=== PATIENT | male | born 1970 | race Two or more races ===

== ENCOUNTER 2021-06-16 20:35 | Emergency (ER) | payer SELFPAY ==
[2021-06-16] MEDS ORDERED: Metoprolol Tartrate 50 MG Tab PO ONE (21:01)
[2021-06-16] MEDS ORDERED: Aspirin 81 MG Tab.Chew PO ONE (21:03)
[2021-06-16 21:23] LABS: PTT,PARTIAL THROMBOPLSTIN TIME 24.3 SEC (23.2-32.3)
[2021-06-16 21:24] LABS: CHLORIDE,CL 99 mEq/L (98-106); SODIUM,NA 137 mEq/L (136-145)
--- NOTE | 2021-06-16 21:25 | EDM.PDOC ---
ED HPI GENERAL MEDICAL PROBLEM - General Chief Complaint: Chest Pain Stated Complaint: cp Time Seen by Provider: 06/16/21 21:25 Source of Information: Reports: Patient History Limitations: Reports: No Limitations - History of Present Illness INITIAL COMMENTS - FREE TEXT/NARRATIVE: Toy is a 50 year old male with no known PMH who presents to the ED with c/o chest pain. He reports that intermittently over the last 2 weeks, when he exerts himself, he will have substernal chest pain that radiates to his jaw/left arm. He reports he has been nervous about coming in to the doctor. Reports that this evening the pain started around 1930 and did not resolve with rest and drinking water. He reports that normally the pain would resolve if he drank water and rested. He denies any dizziness, lightheadedness, headache, palpitations, shortness of breath, N/V/D. No other associated symptoms. He is not a smoker. Reports occasional alcohol use. No drug use. Has not been to the doctor in a number of years. Onset: Today Onset Date: 06/16/21 Onset Time: 19:30 Duration: Constant Location: Reports: Chest, Upper Extremity, Left, Radiates to Quality: Reports: Burning, Throbbing Severity: Moderate Improves with: Reports: None Worsens with: Reports: None Associated Symptoms: Reports: Chest Pain. Denies: Confusion, Cough, cough w sputum, Diaphoresis, Fever/Chills, Headaches, Loss of Appetite, Malaise, Nausea/Vomiting, Rash, Seizure, Shortness of Breath, Syncope, Weakness Chest Pain Score (Numeric/FACES): 3 - Related Data Allergies Allergy/AdvReac Type Severity Reaction Status Date / Time No Known Allergies Allergy Verified 06/16/21 21:01 Home Meds: Home Meds . [No Known Home Meds] 06/16/21 [History] Past Medical History - Past Health History Medical/Surgical History: Denies Medical/Surgical History Social & Family History - Family History Family Medical History: No Pertinent Family History - Tobacco Use Tobacco Use Status *Q: Never Tobacco User - Caffeine Use Caffeine Use: Reports: Coffee - Recreational Drug Use Recreational Drug Use: No ED ROS GENERAL - Review of Systems Review Of Systems: See Below Constitutional: Reports: No Symptoms. Denies: Fever, Chills, Malaise, Weakness, Fatigue, Diaphoresis, Decreased Appetite HEENT: Reports: No Symptoms Respiratory: Reports: Wheezing. Denies: Shortness of Breath, Pleuritic Chest Pain, Cough, Sputum, Hemoptysis Cardiovascular: Reports: Chest Pain, Blood Pressure Problem. Denies: Dyspnea on Exertion, Edema, Lightheadedness, Orthopnea, Palpitations, Syncope Endocrine: Reports: No Symptoms GI/Abdominal: Reports: No Symptoms. Denies: Abdominal Pain, Diarrhea, Nausea, Vomiting : Reports: No Symptoms Musculoskeletal: Reports: No Symptoms Skin: Reports: No Symptoms Neurological: Denies: Confusion, Dizziness, Headache, Numbness, Syncope, Tingling, Weakness Psychiatric: Reports: No Symptoms Hematologic/Lymphatic: Reports: No Symptoms Immunologic: Reports: No Symptoms ED EXAM, GENERAL - Physical Exam Exam: See Below Exam Limited By: Language Barrier General Appearance: Alert, WD/WN, No Apparent Distress Head: Atraumatic, Normocephalic Neck: Normal Inspection, Supple, Non-Tender, Full Range of Motion Respiratory/Chest: No Respiratory Distress, Lungs Clear, Normal Breath Sounds, No Accessory Muscle Use, Chest Non-Tender Cardiovascular: Normal Peripheral Pulses, Regular Rate, Rhythm, No Edema, No Gallop, No JVD, No Murmur, No Rub GI/Abdominal: Normal Bowel Sounds, Soft, No Organomegaly, No Distention, No Abnormal Bruit, No Mass, Tender (mild tenderness epgastric area) Back Exam: Normal Inspection, Full Range of Motion, NT Extremities: Normal Inspection, Normal Range of Motion, Non-Tender, Normal Capillary Refill, No Pedal Edema Neurological: Alert, Oriented, CN II-XII Intact, Normal Cognition, Normal Gait, Normal Reflexes, No Motor/Sensory Deficits Psychiatric: Normal Affect, Normal Mood Skin Exam: Warm, Dry, Intact, Normal Color, No Rash Course - Vital Signs Last Recorded V/S: Last Vital Signs Temp 98.5 F 06/16/21 23:20 Pulse 68 06/16/21 23:20 Resp 15 06/16/21 23:20 BP 169/84 H 06/16/21 23:34 Pulse Ox 95 06/16/21 23:20 - Orders/Labs/Meds Orders: Active Orders 24 hr Category Date Time Status Chest 2V [CR] Stat Exams 06/16/21 21:04 Taken Labs: Laboratory Tests 06/16/21 06/16/2106/16/21 Range/Units 21:01 21:01 21:01 WBC 9.7 (4.0-11.0) 10^3/uL RBC 4.12 L (4.50-6.00) x10^6/uL Hgb 11.7 L (14.0-18.0) g/dL Hct 35.3 L (42.0-52.0) % MCV 85.7 (83.0-97.0) fL MCH 28.4 (27.0-32.0) pg MCHC 33.1 (32.0-36.0) g/dL RDW Coeff of Debbie 13.5 (11.0-15.0) % Plt Count 324 (150-400) 10^3/uL Immature Gran % (Auto) 0.1 (0.0-4.9) % Neut % (Auto) 52.1 (41-71) % Lymph % (Auto) 23.2 L (24-44) % Mcdowell % (Auto) 8.1 (0-10) % Eos % (Auto) 15.8 H (0-6) % Baso % (Auto) 0.7 (0-1) % Neut # (Auto) 5.04 (1.80-8.00) x10^3/uL Lymph # (Auto) 2.25 (0.60-5.00) 10^3/uL Mcdowell # (Auto) 0.78 (0.00-1.50) 10^3/uL Eos # (Auto) 1.53 H (0.00-1.50) 10^3/uL Baso # (Auto) 0.07 (0.00-0.50) 10^3/uL Immature Gran # (Auto) 0.01 (0.00-0.49) 10^3/uL PT 9.8 (9.7-12.3) SEC INR 0.89 L (0.92-1.18) APTT 24.3 (23.2-32.3) SEC Sodium 137 (136-145) mEq/L Potassium 3.9 (3.5-5.0) mEq/L Chloride 99 (98-106) mEq/L Carbon Dioxide 28 (21-32) mmol/L BUN 18 (7-18) mg/dL Creatinine 1.2 (0.7-1.3) mg/dL Est Cr Clr Drug Dosing 70.46 mL/min Estimated GFR (MDRD) > 60 (>=60) mL/min Glucose 104 H (75-99) mg/dL Calcium 8.4 (8.4-10.1) mg/dL Magnesium 2.0 (1.8-2.4) mg/dL Total Bilirubin 0.2 (0.0-1.0) mg/dL AST 32 (15-37) U/L ALT 51 (12-78) U/L Alkaline Phosphatase 145 H (46-116) U/L Lactate Dehydrogenase 166 (100-190) U/L Creatine Kinase 124 (35-232) U/L Troponin I 0.322 H (0.00-0.06) ng/mL Total Protein 7.0 (6.4-8.2) g/dL Albumin 3.5 (3.4-5.0) g/dL Lipase 54 L (73-393) U/L Meds: Medications Discontinued Medications Generic Name Dose Route Start Last Admin Trade Name Natanael PRN Reason Stop Dose Admin Aspirin 324 mg 06/16/21 21:03 06/16/21 21:05 Aspirin 81 Mg Tab.Chew PO 06/16/21 21:04 324 mg ONETIME ONE Administration Heparin Sodium (Porcine) 4,000 units 06/16/21 22:01 06/16/21 22:10 Heparin Sodium 5,000 Units/Ml Vial IVPUSH 06/16/21 22:02 4,000 units ONETIME ONE Administration Hydralazine HCl 20 mg 06/16/21 22:58 06/16/21 23:04 Hydralazine 20 Mg/Ml Sdv IVPUSH 06/16/21 22:59 20 mg ONETIME ONE Administration Nitroglycerin/Dextrose 25 mg in 250 mls @ 6 mls/hr 06/16/21 22:00 06/16/21 22:03 Nitroglycerin 25 Mg/D5w 250 Ml IV 5 mcg/min TITRATE YARIEL 3 mls/hr Administration Protocol 10 MCG/MIN Heparin Sodium/Sodium Chloride Confirm 06/16/21 21:32 06/16/21 22:14 Heparin 25,000 Units In 1/2 Ns 500 Ml Administered 06/16/21 21:33 Not Given Dose 500 mls @ as directed .ROUTE .STK-MED ONE Heparin Sodium/Sodium Chloride 500 mls @ 20 mls/hr 06/16/21 22:00 06/16/21 22:14 Heparin 25,000 Units In 1/2 Ns 500 Ml IV 1,000 units/hr TITRATE YARIEL 20 mls/hr Administration Protocol 1,000 UNITS/HR Metoprolol Tartrate 50 mg 06/16/21 21:01 06/16/21 21:09 Metoprolol Tartrate 50 Mg Tab PO 06/16/21 21:02 50 mg ONETIME ONE Administration Nitroglycerin 0.4 gm 06/16/21 21:37 06/16/21 21:50 Nitroglycerin Lingual [place]erry 4.9 Gm Canister TRLING 0.4 mg ASDIRECTED PRN Administration Chest Pain - Re-Assessments/Exams Free Text/Narrative Re-Assessment/Exam: 06/16/21 21:[address] Calix pediatrician at [facility] who reviewed EKG and recommends transfer to higher level of care given troponin and ST inversions in lateral leads. Recommend aspirin, heparin gtt and nitro gtt. Consulted with Dr. Oropeza, hospitalist at [facility] who accepted patient for transfer. 06/16/21 22:41 Contacted [place], [facility], [place] and [facility]. All report they are unable to provide transportation to [place]. Contacted [facility] who accepted patient for transfer via helicopter. Discussed risks vs. benefits of transfer with patient and friend. Risks of transfer include but not limited to worsening of condition, , and helicopter crash. Benefits of transfer include higher level of care with PCI if indicated. Risks of nontransfer include worsening of condition and . Benefits of nontransfer include convenience. Patient verbalized understanding and was agreeable to transfer. 06/16/21 22:45 Departure - Departure Time of Disposition: 23:50 Disposition: DC/Tfer to [facility] 02 Reason for Transfer *Q: Primary PCI Indicated Clinical Impression: Acute coronary syndrome, Hypertensive urgency Referrals: PCP,Unknown [Primary Care Provider] - Forms: ED Department Discharge Sepsis Event Note (ED) - Evaluation Sepsis Screening Result: No Definite Risk - Problem List & Annotations (1) Acute coronary syndrome SNOMED Code(s): 862049972 Code(s): I24.9 - ACUTE ISCHEMIC HEART DISEASE, UNSPECIFIED Status: Acute (2) Elevated troponin SNOMED Code(s): 053215685, 377648341, 107416055 Code(s): R77.8 - OTHER SPECIFIED ABNORMALITIES OF PLASMA PROTEINS Status: Acute (3) Hypertensive urgency SNOMED Code(s): 209415987 Code(s): I16.0 - HYPERTENSIVE URGENCY Status: Acute - Problem List Review Problem List Initiated/Reviewed/Updated: Yes - My Orders Last 24 Hours: My Active Orders 06/16/21 21:04 Chest 2V [CR] Stat - Assessment/Plan Last 24 Hours: My Active Orders 06/16/21 21:04 Chest 2V [CR] Stat Assessment:: Acute Coronary Syndrome Hypertensive Urgency Plan: 50 yo male presents to the ED with c/o substernal chest pain radiating to left jaw/arm. Reports onset 2 hrs prior to ED presentation but has been having this type of pain intermittently over the last 2 weeks. No known PMH. BP is significantly elevated upon arrival 200s/100s. EKG shows ST inversion in lateral leads and troponin elevated to 0.322. Consulted with [facility] pediatrician, who also reviewed EKG and recommend transfer to higher level of care as well as administering aspirin and initiating heparin and nitro gtt. Discussed case with Dr. Oropeza, hospitalist, who accepted patient for transfer. Heparin bolus and gtt initiated. Nitro gtt started. Patient received 50 mg Lopressor, 324 mg aspirin, 3 SL nitro. BP remained 200s/100s. Nitro and heparin gtt started. BP remained 200s/100s but chest pain resolved shortly after initiating nitro gtt. Administered 20 mg hydralazine in attempt to reduce BP. BP did improve slightly to 178/96. Patient will be transferred to [facility] via [facility]. Discharged from facility in stable condition.
[2021-06-16] MEDS ORDERED: Heparin Sodium/0.45% NaCl 500 ML ONE (21:32)
[2021-06-16] MEDS: Nitroglycerin Lingual Spray 4.9 GM Canister TRLING PRN ×3 (21:37→21:50)
[2021-06-16] MEDS ORDERED: Nitroglycerin/D5W 25 MG/250 ML BOTTLE IV SCH (22:00)
[2021-06-16] MEDS ORDERED: Heparin Sodium/0.45% NaCl 500 ML IV SCH (22:00)
[2021-06-16] MEDS ORDERED: Heparin Sodium 5,000 Units/ML Vial IVPUSH ONE (22:01)
[2021-06-16] MEDS ORDERED: hydrALAZINE 20 MG/ML SDV IVPUSH ONE (22:58)
== END 2021-06-16 23:50 ==
LOC: CC.ED 20:35
DX: I24.9 Acute ischemic heart disease, unspecified (principal); I16.0 Hypertensive urgency
CPT/HCPCS: 36415; 71046; 80053; 82550; 83615; 83690; 83735; 84484; 85025; 85610; 85730; 93005; 96365; 96366; 96368; 96375; 99285; A9270; J0360; J1644; J3490